=== PATIENT | female | born 1965 | race Caucasian/White ===

== ENCOUNTER 2016-08-03 09:33 | Inpatient (IN) | payer MEDICARE, MEDICAID ==
[2016-08-01 14:12] VITALS: BMI 35.9
[2016-08-03] VITALS (24 sets, daily range): BP systolic 105–187; RESP 12–28; TEMP 98–100.6; Ht 154.9 cm; Wt 86.2 kg
[~2016-08-03] VITALS: Ht 154.9 cm; Wt 86.2 kg
[2016-08-03] MEDS ORDERED: LACT RINGERS 1,000 ML IV SCH (10:25)
[2016-08-03] MEDS ORDERED: LIDOCAINE 1% BUFFERED 1 ML SYR INTRADERM PRN ×2 (10:25→12:15)
[2016-08-03] MEDS ORDERED: NEB-ALBUTEROL 2.5 MG/3 ML INH ONE ×2 (12:15)
[2016-08-03] MEDS ORDERED: BISACODYL 10 MG SUPP RECTAL PRN ×2 (13:30→13:45)
[2016-08-03] MEDS ORDERED: BISACODYL EC 5 MG TAB PO PRN ×2 (13:30→13:45)
[2016-08-03] MEDS ORDERED: ALU/MAG/SIM 30 ML UDC PO PRN ×2 (13:30→13:45)
[2016-08-03] MEDS ORDERED: MAG HYDROX 30 ML UDC PO PRN ×2 (13:30→13:45)
[2016-08-03] MEDS ORDERED: SALINE FLUSH 10 ML FLUSH PRN ×2 (13:30→13:45)
[2016-08-03] MEDS ORDERED: ONDANSETRON 4 MG VIAL IV PRN (13:30)
[2016-08-03] MEDS ORDERED: PROMETHAZINE 25 MG TAB PO PRN (13:50)
[2016-08-03] MEDS: DUONEB INH SCH ×3 (16:08→22:48)
[2016-08-03] MEDS: SODIUM CHLORIDE 0.9% FLUSH BAG 500 ML IV SCH (16:54)
[2016-08-03] MEDS: SALINE FLUSH 10 ML FLUSH SCH ×3 (16:56→20:00)
[2016-08-03] MEDS: CLINDAMYCIN 600 MG in DEXTROSE 5% 50 ML IV SCH (16:56)
[2016-08-03] MEDS: ENOXAPARIN 40 MG/0.4 ML SYR SUBQ SCH (16:56)
[2016-08-03] MEDS: ACETAMINOPHEN 325 MG TAB PO PRN (21:15)
[2016-08-04] MEDS: CLINDAMYCIN 600 MG in DEXTROSE 5% 50 ML IV SCH ×4 (00:01→23:52)
[2016-08-04] MEDS: ACETAMINOPHEN 500 MG TAB PO PRN ×2 (03:08→16:45)
[2016-08-04 03:38] VITALS: BP_SYST 116; RESP 18; TEMP 98.3
[2016-08-04] MEDS: SODIUM CHLORIDE 0.9% FLUSH BAG 500 ML IV SCH ×2 (06:24→23:54)
[2016-08-04] MEDS: PANTOPRAZOLE 40 MG TAB PO SCH (06:24)
[2016-08-04] MEDS: DUONEB INH SCH ×5 (06:43→23:20)
[2016-08-04] MEDS ORDERED: PROPOFOL 50ML VIAL IV ONE (07:12)
[2016-08-04] MEDS ORDERED: LIDOCAINE 2% SYR 5 ML IV ONE (07:12)
[2016-08-04 07:35] VITALS: BP_SYST 102; RESP 16; TEMP 97.7
[2016-08-04] MEDS: SALINE FLUSH 10 ML FLUSH SCH ×4 (08:00→20:32)
[2016-08-04 10:36] VITALS: BP_SYST 119; RESP 16; TEMP 97.9
[2016-08-04 15:00] VITALS: BP_SYST 106; RESP 16; TEMP 98.3
[2016-08-04] MEDS: ENOXAPARIN 40 MG/0.4 ML SYR SUBQ SCH (16:44)
[2016-08-04 19:23] VITALS: BP_SYST 112; RESP 16; TEMP 98
[2016-08-05] VITALS (8 sets, daily range): BP systolic 98–141; RESP 16–18; TEMP 97.6–98.1
[2016-08-05] MEDS: SODIUM CHLORIDE 0.9% FLUSH BAG 500 ML IV SCH (03:02)
[2016-08-05] MEDS: PANTOPRAZOLE 40 MG TAB PO SCH (06:07)
[2016-08-05] MEDS: DUONEB INH SCH ×5 (07:31→23:24)
[2016-08-05] MEDS: SALINE FLUSH 10 ML FLUSH SCH ×4 (08:02→20:00)
[2016-08-05] MEDS: CLINDAMYCIN 600 MG in DEXTROSE 5% 50 ML IV SCH ×3 (08:03→23:18)
[2016-08-05] MEDS ORDERED: GUAIFEN/DM 10 ML UDC PO PRN (12:20)
[2016-08-05] MEDS: ENOXAPARIN 40 MG/0.4 ML SYR SUBQ SCH (15:08)
[2016-08-05] MEDS: ACETAMINOPHEN 325 MG TAB PO PRN (15:15)
[2016-08-06] MEDS: SODIUM CHLORIDE 0.9% FLUSH BAG 500 ML IV SCH ×2 (01:45→01:46)
[2016-08-06 03:11] VITALS: BP_SYST 115; RESP 18; TEMP 97.9
[2016-08-06] MEDS: PANTOPRAZOLE 40 MG TAB PO SCH (05:37)
[2016-08-06] MEDS: ACETAMINOPHEN 500 MG TAB PO PRN (05:38)
[2016-08-06 07:28] VITALS: BP_SYST 114; RESP 16; TEMP 97.6
[2016-08-06] MEDS: CLINDAMYCIN 600 MG in DEXTROSE 5% 50 ML IV SCH (07:28)
[2016-08-06] MEDS: SALINE FLUSH 10 ML FLUSH SCH ×2 (07:28)
[2016-08-06] MEDS: DUONEB INH SCH ×2 (08:16→11:00)
[2016-08-06 10:43] VITALS: BP_SYST 114; RESP 16; TEMP 97.6
== END 2016-08-06 11:36 | disposition home or self-care (01) | DRG 205 ==
LOC: ENRESERVDT → ENRESERVTM → ENDO 09:33 → EMR 13:30 → 5THW 15:38 → ENPENDDIS 08-04 10:53 → OBSVTOIN 08-04 10:53
PROVIDERS: ADMIT Internal Medicine; ATTEND Internal Medicine
PROC: 0DJD8ZZ Inspection of Lower Intestinal Tract, Via Natural or Artificial Opening Endoscopic (ICD-10-PCS; principal; 2016-08-03 11:15)
CPT/HCPCS: 36415; 71010; 71020; 80048; 85025; 94640; 94799; 99223; 99233; 99238